=== PATIENT | female | born 1960 | race African-American/Black ===

== ENCOUNTER 2017-04-20 14:24 | Observation (INO) | payer BC, OTHER ==
[2017-04-20] MEDS ORDERED: Ondansetron HCl/PF 4 MG/2 ML Vial ONE (15:21)
[2017-04-20 15:29] LABS: #Basophils 0.1 thou/uL (0.0-0.2); #Lymphocytes 1.3 thou/uL (1.20-3.40); #Monocytes 0.4 thou/uL (0.11-0.59); #Neutrophils 3.8 thou/uL (1.40-6.50); %Eosinophils 0.3 % (0.0-10.0); %Monocytes 6.8 % (0.0-10.0); Mean Platelet Volume 7.5 fL (7.4-10.4); Red Blood Cell (RBC) Count 5.19 mill/uL (4.20-5.40); White Blood Cell (WBC) Count 5.5 thou/uL (4.8-10.8)
[2017-04-20 15:49] LABS: ALT (SGPT) 14 U/L (8-55); AST (SGOT) 21 U/L (5-34); Alkaline Phosphatase 92 U/L (40-150); Anion Gap 13 mmol/L (10-20); BUN (Urea Nitrogen) 12 mg/dL (9.8-20.1); Bilirubin, Total 0.5 mg/dL (0.2-1.2); CK (CPK) 98 U/L (29-168); Calc. Creatinine Clearance 0 mL/min (70-130); Calcium 9.7 mg/dL (7.8-10.44); Carbon Dioxide 24 mmol/L (22-29); Chloride 107 mmol/L (98-107); Estimated GFR-MDRD 85; Globulin 3.8 g/dL (2.4-3.5); Protein, Total 7.8 g/dL (6.0-8.3)
[2017-04-20 15:50] LABS: Troponin I Less than 0.010 ng/mL (< 0.028)
[2017-04-20] MEDS ORDERED: Meclizine HCl 25 MG TAB ONE (16:25)
[2017-04-20] MEDS ORDERED: Aspirin 325 MG TAB ONE (16:25)
--- NOTE | 2017-04-20 17:35 | CT ---
CT HEAD WITHOUT IV CONTRAST 04/20/17 HISTORY: Dizziness and vomiting which started this afternoon. Nausea. COMPARISON: None available. FINDINGS: There is decreased attenuation in the periventricular white matter which is nonspecific but likely re flective of chronic small vessel ischemic changes. There is no evidence of an acute cortical infarcti on, hemorrhage, mass effect, or midline shift. Ventricular system is normal in size, shape and positi on. There is a defect in the right medial orbital wall which may be related to prior injury or develo pmental in origin. Mastoid air cells are clear. Calvarial structures are intact. IMPRESSION: 1. No acute intracranial abnormalities demonstrated. 2. Chronic small vessel ischemic changes. POS: [facility]
[2017-04-20 17:57] VITALS: BMI 28.1
[2017-04-20] MEDS ORDERED: Ondansetron ODT 4 MG TAB SL PRN (18:08)
[2017-04-20] MEDS ORDERED: Ondansetron HCl/PF 4 MG/2 ML Vial IVP PRN (18:08)
[2017-04-20] MEDS ORDERED: Meclizine HCl 25 MG TAB PO PRN (18:11)
[2017-04-20] MEDS: Acetaminophen 325 MG TAB PO PRN ×2 (18:34→19:45)
[2017-04-20] MEDS ORDERED: Loperamide HCl 2 MG CAP PO PRN (18:34)
[2017-04-20] MEDS: Sodium Chloride 0.9% 1,000 ML IV SCH (19:44)
--- NOTE | 2017-04-20 20:20 | RAD ---
CHEST TWO VIEWS 04/20/17 HISTORY: Chest pain. FINDINGS: The cardiac silhouette and pulmonary vasculature are unremarkable. Mediastinum is midline. There is n o confluent air space consolidation, pneumothorax or pleural fluid evident. traffic monitor specialist leads ove rlie the chest. IMPRESSION: No active cardiopulmonary abnormalities are demonstrated. POS: [facility]
[2017-04-20] MEDS ORDERED: Metoclopramide HCl 10 MG TAB PO SCH (22:30)
[2017-04-20] MEDS ORDERED: Ketorolac Tromethamine 30 MG/ML VIAL IVP SCH (22:30)
[2017-04-20 22:33] LABS: Troponin I Less than 0.010 ng/mL (< 0.028)
[2017-04-21] MEDS: Sodium Chloride 0.9% 1,000 ML IV SCH ×3 (04:11→23:42)
[2017-04-21] MEDS ORDERED: Ondansetron ODT 4 MG TAB PO PRN (04:20)
[2017-04-21 05:32] LABS: Anion Gap 8 mmol/L (10-20); BUN (Urea Nitrogen) 13 mg/dL (9.8-20.1); Calc. Creatinine Clearance 79 mL/min (70-130); Calcium 9.1 mg/dL (7.8-10.44); Carbon Dioxide 27 mmol/L (22-29); Chloride 110 mmol/L (98-107); Estimated GFR-MDRD 85
[2017-04-21 05:47] LABS: Hematocrit 36.6 % (36.0-47.0); Mean Platelet Volume 7.3 fL (7.4-10.4); Neutrophil 59 % (42-75); Red Blood Cell (RBC) Count 4.45 mill/uL (4.20-5.40); White Blood Cell (WBC) Count 4.8 thou/uL (4.8-10.8)
[2017-04-21] MEDS ORDERED: Potassium Chloride 20 MEQ TAB PO SCH (06:45)
--- NOTE | 2017-04-21 07:03 | HP-2 ---
DATE OF ADMISSION: 04/20/2017 ADMITTING RESIDENT: Jamal Vargas MD ADMITTING ATTENDING: Ivon Jose M.D. CHIEF COMPLAINT: Dizziness. HISTORY OF PRESENT ILLNESS: This is a 57-year-old female with past medical history of hypertension, who presents with 24 hours of dizziness and generalized weakness, mild headache, nausea, diarrhea, ph otophobia began earlier yesterday and was worse this morning. The patient denied noticing weakness i n one particular limb or the other but noted that she did feel like overall it is difficult to walk. Denies fever or neck pain, headache is frontal and throbbing. PAST MEDICAL HISTORY: Hypertension. PAST SURGICAL HISTORY: Broken arm that was operatively fixed, hysterectomy, hernia repair. MEDICATIONS: 1. Amlodipine 10 mg daily. 2. Aspirin. SOCIAL HISTORY: The patient quit smoking 10 years ago but has a 22-bpdm-waug history. The patient h as 1-2 alcoholic drinks on weekends but none during the week. No recreational drugs. In the ER, the patient was given aspirin, Zofran, and meclizine. REVIEW OF SYSTEMS: A 12-point review of systems was done and was negative except for what was descri bed above in the HPI. PHYSICAL EXAMINATION: VITAL SIGNS: T-max 98.1, respiratory rate 18, heart rate 81, blood pressure 134/91, O2 sat 100% on r oom air, weight 73 kilograms. GENERAL: The patient is alert and oriented x3. EYES: EOMI, PERRLA, anicteric. ENT: Showed moist mucous membranes. Oropharynx is clear. Symmetric tongue and palate movement. CARDIOVASCULAR: Regular rate and rhythm without murmurs or rubs. Pulses equal. RESPIRATORY: Clear to auscultation bilaterally, nonlabored. ABDOMEN: Nontender, nondistended. No guarding, rebound. EXTREMITIES: No edema. Equal movements bilaterally. SKIN: No rash, no palpable lesions. NEUROLOGIC: Cranial nerve exam was normal bilaterally. Strength exam is normal in shoulders, arm ex tensor, flexors bilaterally. Hip flexion and plantar flexion is 4/5 strength in the right leg, 5/5 i n the left leg. Sensation is intact bilaterally. PSYCHIATRIC: Mood and affect are appropriate. Judgment is intact. LABORATORY DATA: White blood cell count 5.5, hemoglobin 13.6, hematocrit 42.0, platelets 252. Sodiu m 140, potassium 3.7, chloride 107, bicarbonate 24, BUN 12, creatinine 0.3, glucose 133, calcium 9.7, albumin 4.0, total protein 7.8, bilirubin 0.5, alkaline phosphatase 92. Troponin was 0.01. EKG was normal sinus rhythm without ischemic changes. ASSESSMENT AND PLAN: 1. Dizziness/right leg weakness concerning for cerebrovascular accident. We will admit the patient to the stroke unit under observation, order MRI, and echocardiogram of the heart. CT of the brain wa s negative for acute changes. We will monitor neuro checks. We will consult Neurology if MRI shows any findings consistent with stroke. Other differential includes migraine, complex or possibly benig n positional vertigo, although exam shows no nystagmus. 2. Hypertension, chronically managed with amlodipine. We will hold until tomorrow morning for permi ssive hypertension. At that point, it will be past 24 hours since onset and we will restart. 3. Headache, possible migraine. We will monitor. We will treat with Tylenol, Reglan, and fluids as needed. The patient may consider Toradol if the patient continues to have headache. We will contin ue Zofran for nausea, deep vein thrombosis prophylaxis, SCDs. History and physical exam, as well as management, discussed with Dr. Ivon Jose who is in [facility]. Code status discussed with the patient and the patient understood decisions and expressed truman lino to be DNR/DNI. Family was there and witness to the conversation.
[2017-04-21] MEDS ORDERED: Lidocaine 2% Viscous Solution 20 ML, Aluminum & Magnesium Hydroxide 30 ML, Donnatal Eli... SSW SCH ×3 (09:15)
--- NOTE | 2017-04-21 11:52 | PDOC.FM ---
- Subjective Subjective: Complaining of nausea but states it's improved from yesterday. States her headache is improved as well. She stated the toradol helped with the headache. Endorses photophobia. - Objective MAR Reviewed: Yes Vital Signs & Weight: Vital Signs (12 hours) Temp Pulse Resp BP BP BP Pulse Ox 04/21/17 11:15 98.3 F 72 18 134/69 96 04/21/17 09:35 141/69 H 152/76 H 140/65 04/21/17 08:00 98.7 F 76 18 04/21/17 07:15 98.7 F 76 18 126/69 99 04/21/17 03:00 98.6 F 77 20 140/67 99 I&O: 04/20/17 04/21/17 04/22/17 06:59 06:59 06:59 Intake Total 1760 Output Total 0 Balance 1760 Result Diagrams: 04/21/17 04:43 04/21/17 04:43 <Billie Valerio - Last Filed: 04/21/17 20:47> - Objective Vital Signs & Weight: Weight Weight 73.346 kg I&O: 04/22/17 04/23/17 04/24/17 06:59 06:59 06:59 Intake Total 2200 Balance 2200 Result Diagrams: 04/21/17 04:43 04/22/17 06:50 <Ivon Jose - Last Filed: 04/23/17 17:37> Phys Exam - Physical Examination Constitutional: NAD HEENT: PERRLA, moist MMs Respiratory: no wheezing, no rales, no rhonchi, clear to auscultation bilateral Cardiovascular: RRR, no significant murmur, no rub Gastrointestinal: soft, non-tender, no distention, positive bowel sounds Musculoskeletal: no edema, pulses present Neurological: non-focal, moves all 4 limbs Psychiatric: A&O x 3 <Billie Valerio - Last Filed: 04/21/17 20:47> Dx/Plan (1) Migraine Code(s): G43.909 - MIGRAINE, UNSP, NOT INTRACTABLE, WITHOUT STATUS MIGRAINOSUS Status: Acute (2) Hypertension Code(s): I10 - ESSENTIAL (PRIMARY) HYPERTENSION Status: Acute (4) Suspected cerebrovascular accident (CVA) Code(s): I63.9 - CEREBRAL INFARCTION, UNSPECIFIED Status: Acute - Plan Plan: 57 yo f with pmhx of HTN presents with generalized weakness and decreased strength of right leg, also with nausea, vomiting, and a headache, admitted for a CVA rule out and migraine headache. 1.)CVA rule out CT head: negative for intracranial bleed Lipid panel pending Aspirin 81mg started Will calculate ascvd risk neuro consulted, will follow recs MRI and echo pending pt currently in NSR with no hx of afib 2.)HTN- amlodipine held hydralazine prn bp>220/110 3.)Migraine, improved reglan and toradol prn <Billie Valerio - Last Filed: 04/21/17 20:47> Attending Addendum - Attending Addendum I personally evaluated the patient and discussed the management with Dr. Valerio on 04/21/17. I agree with the History, Examination, Assessment and Plan documented above with any addition or exceptions noted below. The patient is feeling better. MRI pending. If negative, pt likely needs stress test. Waiting on echo. <Ivon Jose - Last Filed: 04/23/17 17:37>
[2017-04-21] MEDS: Ibuprofen 800 MG TAB PO PRN ×2 (12:15→18:18)
--- NOTE | 2017-04-21 14:23 | MRI ---
BRAIN MRI WITHOUT CONTRAST: DATE: 04/21/17. COMPARISON: None. HISTORY: Dizziness and vomiting with nausea, assess for acute infarction. TECHNIQUE: Multiplanar, multisequence MR imaging of the brain obtained without contrast media. FINDINGS: The diffusion weighted imaging demonstrates no evidence for acute infarction. The axial gradient echo imaging demonstrates no evidence for intracranial hemorrhage. There are numerous foci of increased T2 and FLAIR signal seen throughout the periventricular deep and subcortical white matter bilaterally, but evidence of small-vessel disease. Arterial flow voids at the axial level of the skull base appear grossly unremarkable on the T2 weighted imaging. There is an old medial orbital wall fracture on the right. Imaged paranasal sinuses/mastoid air cell s are grossly unremarkable otherwise. Orbits and globes appear grossly unremarkable. Regional bone marrow signal intensity within normal limits. IMPRESSION: Evidence of significant small-vessel disease. No intracranial hemorrhage or evidence of acute infarc tion noted. POS: [facility]
--- NOTE | 2017-04-21 18:44 | HP ---
DATE OF SERVICE: 04/20/2017 CHIEF COMPLAINT: Dizziness. Please note that this to lead as [place] went down and I could not get into the portal last night af ter seeing the patient. HISTORY OF PRESENT ILLNESS: The patient is a 57-year-old -[place] female with a past medical history of hypertension who presented with 1 day history of dizziness, generalized weakness, nausea, vomiting, diarrhea, and mild headache. The patient noticed some increased weakness in her right low er extremity that has persisted and was subsequently brought to the ER. She states that she feels we ak all over and was little bit better since receiving fluid in the ER. The patient's EKG showed a no rmal sinus rhythm. She did not tell Dr. Vargas that she is experiencing chest pain, but she has allison d her family and mentioned it to me. She states she is currently experiencing chest pain and she is unsure if the pain is related to her nausea and vomiting are not. The CT of the brain showed no acut e processes and chronic small vessel ischemic changes. The patient is being admitted for stroke rule out. The patient will have an MRI. We will trend her cardiac enzymes and continue to provide suppo rtive care. Please see Dr. Vargas dictation for the full history and physical, assessment and plan.
[2017-04-21] MEDS ORDERED: Atorvastatin Calcium 40 MG TAB PO SCH (21:00)
[2017-04-22] MEDS: Sodium Chloride 0.9% 1,000 ML IV SCH (07:16)
[2017-04-22 07:17] LABS: Anion Gap 10 mmol/L (10-20); BUN (Urea Nitrogen) 11 mg/dL (9.8-20.1); Calc. Creatinine Clearance 89 mL/min (70-130); Calcium 8.6 mg/dL (7.8-10.44); Carbon Dioxide 24 mmol/L (22-29); Chloride 111 mmol/L (98-107); Estimated GFR-MDRD 89; Magnesium 2.2 mg/dL (1.6-2.6); Phosphorus 2.7 mg/dL (2.3-4.7)
[2017-04-22] MEDS ORDERED: Meclizine HCl 12.5 MG TAB PO PRN (09:07)
--- NOTE | 2017-04-22 09:32 | PDOC.FM ---
- Subjective Subjective: No acute events overnight. No symptoms this morning. - Objective MAR Reviewed: Yes Vital Signs & Weight: Vital Signs (12 hours) Temp Pulse Resp BP Pulse Ox 04/22/17 08:20 98.9 F 72 20 04/22/17 07:45 98.9 F 72 20 164/74 H 100 04/22/17 03:42 98.3 F 72 16 144/76 H 100 04/21/17 23:10 98.7 F 70 16 144/72 H 97 Weight Weight 73.346 kg I&O: 04/21/17 04/22/17 04/23/17 06:59 06:59 06:59 Intake Total 1760 2200 Output Total 0 Balance 1760 2200 Result Diagrams: 04/21/17 04:43 04/22/17 06:50 <Billie Valerio - Last Filed: 04/22/17 18:27> - Objective Vital Signs & Weight: Vital Signs (12 hours) Temp Pulse Resp BP Pulse Ox 04/22/17 11:32 98.8 F 73 20 159/77 H 99 04/22/17 10:27 72 Weight Weight 73.346 kg I&O: 04/21/17 04/22/17 04/23/17 06:59 06:59 06:59 Intake Total 1760 2200 Output Total 0 Balance 1760 2200 Result Diagrams: 04/21/17 04:43 04/22/17 06:50 <Cirilo Vargas - Last Filed: 04/22/17 21:08> Phys Exam - Physical Examination Constitutional: NAD HEENT: PERRLA, moist MMs Respiratory: no wheezing, no rales, no rhonchi, clear to auscultation bilateral Cardiovascular: RRR, no significant murmur, no rub, gallop Gastrointestinal: soft, non-tender, no distention, positive bowel sounds Musculoskeletal: no edema, pulses present Neurological: non-focal, normal sensation Psychiatric: normal affect, A&O x 3 Skin: no rash <Bilile Valerio - Last Filed: 04/22/17 18:27> Dx/Plan (1) Migraine Code(s): G43.909 - MIGRAINE, UNSP, NOT INTRACTABLE, WITHOUT STATUS MIGRAINOSUS Status: Acute (2) Hypertension Code(s): I10 - ESSENTIAL (PRIMARY) HYPERTENSION Status: Acute (3) Gastroenteritis Code(s): K52.9 - NONINFECTIVE GASTROENTERITIS AND COLITIS, UNSPECIFIED Status : Acute - Plan Plan: 57 yo f with pmhx of HTN presents with generalized weakness and decreased strength of right leg, also with nausea, vomiting, and a headache, admitted for a CVA rule out and migraine headache. 1.)Likely Migraine CT head: negative for intracranial bleed MRI negative WHITESIDE improved with toradol and reglan echo showed diastolic dysfunction; no signs of volume overload 2.)HTN- restart home med of amlodipine 3.) Gastroenteritis, resolved. -Nausea, vomiting -Improved with Reglan 4.)Stroke prevention: ASCVD risk 9.5% Started on Atorvastatin 40mg qhs liver enzymes normal Dispo: Discharge home today <Billie Valerio - Last Filed: 04/22/17 18:27> Attending Addendum - Attending Addendum I personally evaluated the patient and discussed the management with Dr. Mccabe. I agree with the History, Examination, Assessment and Plan documented above with any addition or exceptions noted below. Ms. Mercado feels fine. No Headache, chest pain or dyspnea. Her vitals are normal except systolic BP ranges 144-164. Lungs: CTA, Cor: RRR, no murmur. MRI brain normal. Echo mild diastolic dysfunction. She is stable for D/C to f/ u with Dr. Barboza her PCP. Resume home Amlodipine. <Cirilo Vargas - Last Filed: 04/22/17 21:08>
[2017-04-22] MEDS ORDERED: Amlodipine 10 MG TAB PO SCH (10:00)
[2017-04-22] MEDS ORDERED: Loratadine 10 MG TAB PO SCH (10:00)
[2017-04-22] MEDS: Famotidine 20 MG TAB PO SCH ×2 (10:28→10:30)
[2017-04-22 11:33] VITALS: BP 159/77; TEMP 98.8
[2017-04-22] MEDS ORDERED: Famotidine 20 MG TAB PO SCH (21:00)
[2017-04-23] MEDS ORDERED: Amlodipine 10 MG TAB PO SCH (09:00)
[2017-04-23] MEDS ORDERED: Loratadine 10 MG TAB PO SCH (09:00)
== END 2017-04-22 12:05 | disposition home or self-care (01) ==
LOC: ERS 14:24 → 2SE 17:45
PROVIDERS: ADMIT Family Medicine; ATTEND Family Medicine
DX: R42 Dizziness and giddiness (principal); R53.1 Weakness; R11.2 Nausea with vomiting, unspecified; R19.7 Diarrhea, unspecified; G43.909 Migraine, unspecified, not intractable, without status migrainosus; I10 Essential (primary) hypertension; Z88.5 Allergy status to narcotic agent; Z91.041 Radiographic dye allergy status; Z79.82 Long term (current) use of aspirin; Z79.899 Other long term (current) drug therapy; Z87.891 Personal history of nicotine dependence
CPT/HCPCS: 36415; 70450; 70551; 71020; 80048; 80053; 80061; 82553; 83735; 83880; 84100; 84484; 85025; 93005; 93306; 96361; 96374; 96375; A4216; G0378; J1885; J2405; Q0162

== ENCOUNTER 2018-01-08 14:00 | Outpatient (CLI) | payer OTHER | END 2018-01-08 14:01 | disposition home or self-care (01) | LOC: BICMAMMO 14:00 | PROVIDERS: ATTEND Family Medicine | DX: Z12.31 Encounter for screening mammogram for malignant neoplasm of breast (principal); Z80.3 Family history of malignant neoplasm of breast | CPT/HCPCS: 77063; 77067 ==

== ENCOUNTER 2019-01-09 13:24 | Outpatient (CLI) | payer BC, SELFPAY ==
--- NOTE | 2019-01-13 06:47 | MMO ---
Bilateral MAMMO Bilat Screen [facility]. CLINICAL HISTORY: Patient is 58 years old and is seen for screening. The patient has the following family history of breast cancer: mother. The patient has no personal history of cancer. VIEWS: The views performed were: bilateral craniocaudal with tomosynthesis and bilateral mediolateral oblique with tomosynthesis. FILMS COMPARED: The present examination has been compared to prior imaging studies performed at [facility] on 12/23/2014, 12/26/2015, 01/07/2017 and 01/08/2018. MAMMOGRAM FINDINGS: There are scattered fibroglandular densities. There are benign appearing calcifications seen in both breasts. There are no suspicious masses, suspicious calcifications, or new areas of architectural distortion. IMPRESSION: THERE IS NO MAMMOGRAPHIC EVIDENCE OF MALIGNANCY. A ROUTINE FOLLOW-UP MAMMOGRAM IN 1 YEAR IS RECOMMENDED. THE RESULTS OF THIS EXAM WERE SENT TO THE PATIENT. ACR BI-RADS Category 2 - Benign finding MAMMOGRAPHY NOTE: 1. A negative mammogram report should not delay a biopsy if a dominant of clinically suspicious mass is present. 2. Approximately 10% to 15% of breast cancers are not detected by mammography. 3. Adenosis and dense breasts may obscure an underlying neoplasm. Reported by: RICKY ROCHA MD Electonically Signed: [id number]
== END 2019-01-09 13:25 | disposition home or self-care (01) ==
LOC: BICMAMMO 13:24
PROVIDERS: ATTEND Family Medicine
DX: Z12.31 Encounter for screening mammogram for malignant neoplasm of breast (principal); Z80.3 Family history of malignant neoplasm of breast
CPT/HCPCS: 77063; 77067

== ENCOUNTER 2021-01-10 14:12 | Outpatient (CLI) | payer BC | END 2021-01-10 14:13 | disposition home or self-care (01) | LOC: BICMAMMO 14:12 | PROVIDERS: ATTEND Family Medicine | DX: Z12.31 Encounter for screening mammogram for malignant neoplasm of breast (principal); Z80.3 Family history of malignant neoplasm of breast | CPT/HCPCS: 77063; 77067 ==

== ENCOUNTER 2022-01-11 13:28 | Outpatient (CLI) | payer BC | END 2022-01-11 13:29 | disposition home or self-care (01) | LOC: BICMAMMO 13:28 | PROVIDERS: ATTEND Family Medicine | DX: Z12.31 Encounter for screening mammogram for malignant neoplasm of breast (principal); Z80.3 Family history of malignant neoplasm of breast | CPT/HCPCS: 77063; 77067 ==